=== PATIENT | female | born 1975 | race Caucasian/White ===

== ENCOUNTER 2017-02-14 18:41 | Emergency (ER) | payer OTHER ==
[~2017-02-14] VITALS: Ht 154.9 cm; Wt 54.4 kg
[~2017-02-14 18:41] MED LIST: ALPRAZOLAM0.25 MG PO; ESTRACE2 MG PO; MORPHINE SULFAT15 MG PO; OXYCODONE HCL5 MG PO; PERCOCET 5-3251 EACH PO; PREMARIN0.45 MG PO; ZITHROMAX500 MG PO
[2017-02-14] MEDS ORDERED: CLINDAMYCIN HC300 MG PO (19:55)
== END 2017-02-14 20:04 | disposition home or self-care (01) ==
LOC: ED 18:41
DX: K02.9 Dental caries, unspecified (principal); E11.9 Type 2 diabetes mellitus without complications; Z90.49 Acquired absence of other specified parts of digestive tract; Z90.710 Acquired absence of both cervix and uterus; Z88.0 Allergy status to penicillin; Z88.5 Allergy status to narcotic agent; Z88.6 Allergy status to analgesic agent; Z79.899 Other long term (current) drug therapy
CPT/HCPCS: 99283

== ENCOUNTER 2017-02-17 11:47 | Emergency (ER) | payer OTHER ==
[~2017-02-17 11:47] MED LIST changes: +CLINDAMYCIN HC300 MG PO
[2017-02-17] MEDS ORDERED: PERCOCET 5-3251 EACH PO (13:55)
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
== END 2017-02-17 14:10 | disposition home or self-care (01) ==
LOC: ED 11:47
DX: S06.0X1A Concussion with loss of consciousness of 30 minutes or less, initial encounter (principal); S39.012A Strain of muscle, fascia and tendon of lower back, initial encounter; M54.2 Cervicalgia; R73.03 Prediabetes; Z88.0 Allergy status to penicillin; Z88.5 Allergy status to narcotic agent; Z79.899 Other long term (current) drug therapy; Z90.49 Acquired absence of other specified parts of digestive tract; Z90.710 Acquired absence of both cervix and uterus; V57.5XXA Driver of pick-up truck or van injured in collision with fixed or stationary object in traffic accident, initial encounter
CPT/HCPCS: 70450; 72125; 72131; 80053; 82150; 82550; 85025; 86850; 86900; 86901; 96374; 99284; G0480; J1170

== ENCOUNTER 2017-09-08 15:12 | Emergency (ER) | payer OTHER ==
[~2017-09-08] VITALS: Ht 154.9 cm; Wt 54.4 kg
--- OUTSIDE RECORDS SUMMARY | ~2017-09-08 | XMS | Clinical Summary ---
Demographics + + + | Address | [address] | | | [place] [address] | + + + | Home Phone | | + + + | Preferred Language | Unknown | + + + | Marital Status | | + + + | Caodaism Affiliation | Unknown | + + + | Race | White | + + + | Ethnic Group | Not or | + + + Author + + + | Author | [facility] | + + + | Organization | [facility] | + + + | Address | Unknown | + + + | Phone | Unavailable | + + + Support + + + + + | Name | Relationship | Address | Phone | + + + + + | Mally Darby | ECON | [address] | | | [place] | | [place] | | | | | [address] | | + + + + + Care Team Providers + +------+ + | Care Life Insurance Sales Agent Name | Role | Phone | + +------+ + | Kerwin Jeter DO | PP | | + +------+ + Source Comments [place] is fully live on both EpicCare Ambulatory and EpicCare InPatient.[facility] Allergies + + + + + + | Active Allergy | Reactions | Severity | Noted | Comments | | | | | Date | | + + + + + + | Penicillins | Rash | | 08/30/19 | | | | | | 14 | | + + + + + + Current Medications + + +--------+---------+------+------+-------+ | Prescription | Sig. | Disp. | Refills | Star | End | Statu | | | | | | t | Date | s | | | | | | Date | | | + + +--------+---------+------+------+-------+ | estradiol 1 mg | Take 1 mg by mouth | | | | | Activ | | oral tablet | once daily. | | | | | e | + + +--------+---------+------+------+-------+ | oxyCODONE CR 10 mg | Take 10 mg by mouth | | | | | Activ | | oral tablet | every twelve hours. | | | | | e | | extended release 12 | | | | | | | | hr | | | | | | | + + +--------+---------+------+------+-------+ | morphine 15 mg | Take 15 mg by mouth | | | | | Activ | | oral tablet | every four hours as | | | | | e | | | needed. | | | | | | + + +--------+---------+------+------+-------+ | oxyCODONE, | Take 0.5 tablets by | 10 | 0 | 03/2 | | Activ | | immediate release, | mouth every six | tablet | | 5/20 | | e | | 10 mg oral tablet | hours as needed. | | | 14 | | | + + +--------+---------+------+------+-------+ Active Problems Not on file Social History + +-------+ +--------+------+ | Tobacco Use | Types | Packs/Day | Years | Date | | | | | Used | | + +-------+ +--------+------+ | Never Smoker | | | | | + +-------+ +--------+------+ + +---+---+---+ | Smokeless Tobacco: | | | | | Never Used | | | | + +---+---+---+ + + +---------+ + | Alcohol Use | Drinks/We | oz/Week | Comments | | | ek | | | + + +---------+ + | No | | | | + + +---------+ + + + + | Sex Assigned at | Date Recorded | | | | + + + | Not on file | | + + + Last Filed Vital Signs + + + + | Vital Sign | Reading | Time Taken | + + + + | Blood Pressure | 132/86 | 08/29/2013 10:52 AM PDT | + + + + | Pulse | 78 | 08/29/2013 10:52 AM PDT | + + + + | Temperature | - | - | + + + + | Respiratory Rate | - | - | + + + + | Oxygen Saturation | - | - | + + + + | Inhaled Oxygen | - | - | | Concentration | | | + + + + | Weight | 59 kg (130 lb) | 08/29/2013 10:52 AM PDT | + + + + | Height | 155.6 cm (5' 1.25") | 08/29/2013 10:52 AM PDT | + + + + | Body Mass Index | 24.36 | 08/29/2013 10:52 AM PDT | + + + + Plan of Treatment + + + + + | Health Maintenance | Due Date | Last Done | Comments | + + + + + | INFLUENZA VACCINE | | | | | (FLU SHOT) | 8 | | | + + + + + Results Not on filefrom Last 3 Months
--- OUTSIDE RECORDS SUMMARY | ~2017-09-08 | XMS | Clinical Summary ---
Demographics + + + | Address | [address] | | | [place] [address] | + + + | Home Phone | | + + + | Preferred Language | Unknown | + + + | Marital Status | | + + + | Rastafarian Affiliation | Unknown | + + + [...] + | Mally Darby | ECON | [address] | | | [place] | | [place] | | | | | [address] | | + + + + + Care Team Providers + +------+ + | Care Final Canoe Inspector Name | Role | Phone | + +------+ + | Kerwin Jeter DO | PP | | + +------+ + Source Comments [place] is fully live on both EpicCare Ambulatory and EpicCare InPatient.[facility] Allergies + + + + + [...]
== END 2017-09-08 15:20 | disposition home or self-care (01) ==
LOC: ED 15:12
DX: M79.644 Pain in right finger(s) (principal); M79.89 Other specified soft tissue disorders

== ENCOUNTER 2018-03-05 15:05 | Emergency (ER) | payer OTHER ==
[~2018-03-05] VITALS: Ht 154.9 cm; Wt 51.7 kg
--- OUTSIDE RECORDS SUMMARY | ~2018-03-05 | XMS | Clinical Summary ---
Demographics + + + | Address | [address] | | | [place] [address] | + + + | Home Phone | | + + + | Preferred Language | Unknown | + + + | Marital Status | | + + + | Hinduism Affiliation | Unknown | + + + | Race | Unknown | + + + | Ethnic Group | Unknown | + + + Author + + + | Author | [facility] | | | and [place] | + + + | Organization | [facility] | | | and [place] | + + + | Address | Unknown | + + + | Phone | Unavailable | + + + Support + + + + + | Name | Relationship | Address | Phone | + + + + + | Zak Darby | ECON | [address] | | | | | [place] | | | | | [address] | | + + + + + Care Team Providers + +------+ + | Care Pole Framer Name | Role | Phone | + +------+ + | Kerwin Jeter DO | PP | | + +------+ + Allergies + + + + + + | Active Allergy | Reactions | Severity | Noted | Comments | | | | | Date | | + + + + + + | Acetaminophen-Codein | | | 08/16/19 | | | e | | | 11 | | + + + + + + | Penicillins | Nausea And Vomiting, | Low | 08/16/19 | | | | Rash | | 11 | | + + + + + + Current Medications + + +--------+---------+------+------+-------+ | Prescription | Sig. | Disp. | Refills | Star | End | Statu | | | | | | t | Date | s | | | | | | Date | | | + + +--------+---------+------+------+-------+ | estradiol | Take 2 mg by mouth | | | 02/05 | | Activ | | (ESTRACE) 2 MG | Daily. | | | 08/24 | | e | | tablet | | | | 12 | | | + + +--------+---------+------+------+-------+ | naproxen (NAPROXEN | 1 tablet by mouth | | | 03/1 | | Activ | | DR) 500 MG EC | twice daily with | | | 1/20 | | e | | tablet | food | | | 11 | | | + + +--------+---------+------+------+-------+ | morphine (MS | | | | 05/0 | | Activ | | CONTIN) 15 mg ER | | | | 4/20 | | e | | tablet | | | | 15 | | | + + +--------+---------+------+------+-------+ | PREMARIN 1.25 MG | | | | 04/1 | | Activ | | tablet | | | | 6/20 | | e | | | | | | 15 | | | + + +--------+---------+------+------+-------+ | oxyCODONE | | | | 05/0 | | Activ | | (ROXICODONE) 5 mg | | | | 4/20 | | e | | tablet | | | | 15 | | | + + +--------+---------+------+------+-------+ | cyclobenzaprine | | | | 04/2 | | Activ | | (FLEXERIL) 10 mg | | | | 8/20 | | e | | tablet | | | | 15 | | | + + +--------+---------+------+------+-------+ | diazepam (VALIUM) | Take 1 tablet 45 | 2 | 0 | 07/0 | | Activ | | 5 mg tablet | minutes prior tear | tablet | | 8/20 | | e | | | procedure. If | | | 15 | | | | | necessary, you may | | | | | | | | take a second tablet | | | | | | | | as needed. | | | | | | + + +--------+---------+------+------+-------+ Active Problems + + + | Problem | Noted Date | + + + | ASTHMA, INTERMITTENT | 08/15/2010 | + + + | THORACIC/LUMBOSACRAL NEURITIS/RADICULITIS UNSPEC | 08/15/2010 | + + + | BACK PAIN, THORACIC REGION | 08/15/2010 | + + + | SMOKELESS TOBACCO ABUSE | 08/15/2010 | + + + | PARESTHESIA, HANDS | 08/15/2010 | + + + Family History + + +------+ + | Medical History | Relation | Name | Comments | + + +------+ + | Hypertension | Mother | | | + + +------+ + | Arthritis | Paternal | | | | | Grandmoth | | | | | er | | | + + +------+ + + +------+--------+ + | Relation | Name | Status | Comments | + +------+--------+ + | Mother | | | | + +------+--------+ + | Paternal Grandmother | | | | + +------+--------+ + Social History + +-------+ +--------+------+ | Tobacco Use | Types | Packs/Day | Years | Date | | | | | Used | | + +-------+ +--------+------+ | Never Smoker | | | | | + +-------+ +--------+------+ + +------+---+---+ | Smokeless Tobacco: | Chew | | | | Current User | | | | + +------+---+---+ + + +---------+ + | Alcohol Use | Drinks/We | oz/Week | Comments | | | ek | | | + + +---------+ + | No | 0 | 0.0 | | | | Standard | | | | | drinks or | | | | | | | | | | equivalen | | | | | t | | | + + +---------+ + + + + | Sex Assigned at | Date Recorded | | | | + + + | Not on file | | + + + Last Filed Vital Signs + + + + | Vital Sign | Reading | Time Taken | + + + + | Blood Pressure | 103/55 | 03/20/20151358 PDT | + + + + | Pulse | 43 | 03/20/20151358 PDT | + + + + | Temperature | - | - | + + + + | Respiratory Rate | 16 | 03/20/20151358 PDT | + + + + | Oxygen Saturation | - | - | + + + + | Inhaled Oxygen | - | - | | Concentration | | | + + + + | Weight | 57.6 kg (127 lb) | 03/20/20151358 PDT | + + + + | Height | 160 cm (5' 3") | 03/20/20151358 PDT | + + + + | Body Mass Index | 22.5 | 03/20/20151358 PDT | + + + + Plan of Treatment + + + + + | Health Maintenance | Due Date | Last Done | Comments | + + + + + | Vaccine: | | | | | Dtap/Tdap/Td (1 - | 6 | | | | Tdap) | | | | + + + + + | Vaccine: | | | | | Pneumococcal 19-64 | 6 | | | | (PPSV23 only) Medium | | | | | Risk (1 of 1 - | | | | | PPSV23) | | | | + + + + + | Cervical Cancer | | | | | Screening (Pap) | 7 | | | + + + + + | Vaccine: Influenza | | | | | (#1) | 8 | | | + + + + + Results Not on filefrom Last 3 Months
--- OUTSIDE RECORDS SUMMARY | ~2018-03-05 | XMS | Clinical Summary ---
Demographics + + + | Address | [address] | | | [place] [address] | + + + | Home Phone | | + + + | Preferred Language | Unknown | + + + | Marital Status | | + + + | Uatsdin Affiliation | Unknown | + + + [...] | + + + + + | Cuauhtemoc Darby | ECON | [address] | | | [place] | | [place] | | | | | [address] | | + + + + + Care Team Providers + +------+ + | Care Curb Setter Name | Role | Phone | + +------+ + | Kerwin Jeter DO | PP | | + +------+ + Source Comments [place] is fully live on both EpicCare Ambulatory and EpicCare InPatient.[facility] Allergies + + + + + [...] Results Not on filefrom Last 3 Months Insurance +-------+--------+ +------+ + + | Payer | Benefi | Subscriber | Type | Phone | Address | | | t Plan | ID | | | | | | / | | | | | | | Group | | | | | +-------+--------+ +------+ + + | MODA | MODA | [phone] | PPO | [phone] | [address] [address] | | | [place] | | | [phone] | [place] [address] | | | [place] | | | | | +-------+--------+ +------+ + + + +--------+ +--------+ + + | Guarantor Name | Accoun | Relation to | Date | Phone | Billing Address | | | t Type | Patient | of | | | | | | | | | | + +--------+ +--------+ + + | CUAUHTEMOC DARBY | Person | Self [birth year] | Home: | [address] | | | al/Fam | | 1976 | [phone] | [address] [place] | | | [place] | | | [phone] | + +--------+ +--------+ + +
--- OUTSIDE RECORDS SUMMARY | ~2018-03-05 | XMS | Clinical Summary ---
Demographics + + + | Address | [address] | | | [place] [address] | + + + | Home Phone | | + + + | Preferred Language | Unknown | + + + | Marital Status | | + + + | Yarsani Affiliation | Unknown | + + + [...] + | Cuauhtemoc Darby | ECON | [address] | | | [place] | | [place] | | | | | [address] | | + + + + + Care Team Providers + +------+ + | Care Waiter Waitress Name | Role | Phone | + +------+ + | Kerwin Jeter DO | PP | | + +------+ + Source Comments [place] is fully live on both EpicCare Ambulatory and EpicCare InPatient.[facility] Allergies + + + + + [...] | PPO | [phone] [address] [phone] | | | [place] | | | [phone] | [place] [address] | | | [place] | | | [...] | Self | [birth year] | Home: | [address] | | | al/Fam | | 1976 | [phone] | [address] [place] | | | [place] | | | [phone] | [phone] | + +--------+ +--------+ + +
--- OUTSIDE RECORDS SUMMARY | ~2018-03-05 | XMS | Clinical Summary ---
Demographics + + + | Address | [address] | | | [place] [address] | + + + | Home Phone | | + + + | Preferred Language | Unknown | + + + | Marital Status | | + + + | Zoroastrianism Affiliation | Unknown | + + + | Race | Unknown | + + + | Ethnic Group | Unknown | + + + Author + + + | Author | [facility] | + + + | Organization | [facility] | + + + | Address | Unknown | + + + | Phone | Unavailable | + + + Support + + + + + | Name | Relationship | Address | Phone | + + + + + | Zak Islas | ANTHONY | [place], | | | | | [place] [address] | | + + + + + | Zak Islas | ECON | [address] | | | | | [place], [place] | | | | | [address] | | + + + + + Care Team Providers + +------+ + | Care Escort Blind Name | Role | Phone | + +------+ + | Medicine, Thermal | PP | Unavailable | | Family | | | + +------+ + Allergies + + + + + + | Active Allergy | Reactions | Severity | Noted | Comments | | | | | Date | | + + + + + + | Acetaminophen | Nausea and Vomiting | Low | 08/06/19 | | | | | | 13 | | + + + + + + | Ibuprofen | Nausea and Vomiting | Low | 08/06/19 | | | | | | 13 | | + + + + + + | Penicillins | Nausea and Vomiting, | Medium | 08/06/19 | | | | Rash | | 13 | | + + + + + + Current Medications + + +-------+---------+------+------+-------+ | Prescription | Sig. | Disp. | Refills | Star | End | Statu | | | | | | t | Date | s | | | | | | Date | | | + + +-------+---------+------+------+-------+ | estradiol | Take 2 mg by mouth | | | | | Activ | | (ESTRACE) 2 MG | daily. | | | | | e | | tablet | | | | | | | + + +-------+---------+------+------+-------+ | citalopram | Take 10 mg by mouth | | | | | Activ | | (CELEXA) 10 MG | every morning. | | | | | e | | tablet | | | | | | | + + +-------+---------+------+------+-------+ | ALPRAZolam (XANAX) | Take 0.25 mg by | | | | | Activ | | 0.25 MG tablet | mouth nightly as | | | | | e | | | needed. | | | | | | + + +-------+---------+------+------+-------+ | Oxycodone HCl 10 | Take by mouth. | | | | | Activ | | MG TABS | | | | | | e | + + +-------+---------+------+------+-------+ Active Problems + + + | Problem | Noted Date | + + + | Spine pain | 08/05/2012 | + + + Family History + + +------+ + | Medical History | Relation | Name | Comments | + + +------+ + | Cancer | | | | + + +------+ + | Heart disease | | | | + + +------+ + | Seizures | | | | + + +------+ + | Stroke | | | | + + +------+ + + +------+--------+ + | Relation | Name | Status | Comments | + +------+--------+ + Social History + +-------+ +--------+------+ | Tobacco Use | Types | Packs/Day | Years | Date | | | | | Used | | + +-------+ +--------+------+ | Never Smoker | | | | | + +-------+ +--------+------+ + + +---------+ + | Alcohol Use [...] + + + | Blood Pressure | 139/80 | 08/05/2012 10:42 AM PST | + + + + | Pulse | 108 | 08/05/2012 10:42 AM PST | + + + + | Temperature | - | - | + + + + | Respiratory Rate | - | - | + + + + | Oxygen Saturation | - | - | + + + + | Inhaled Oxygen | - | - | | Concentration | | | + + + + | Weight | 54.4 kg (120 lb) | 08/05/2012 10:42 AM PST | + + + + | Height | 154.9 cm (5' 1") | 08/05/2012 10:42 AM PST | + + + + | Body Mass Index | 22.67 | 08/05/2012 10:42 AM PST | + + + + Plan of [...] Not on filefrom Last 3 Months Insurance + +--------+ +------+-------+---------+ | Payer | Benefi | Subscriber | Type | Phone | Address | | | t Plan | ID | | | | | | / | | | | | | | Group | | | | | + +--------+ +------+-------+---------+ | [employer] | FC-NET | [id number] | | | | | | WORK | | | | | + +--------+ +------+-------+---------+ + +--------+ +--------+ + + | Guarantor Name | Accoun | Relation to | Date | Phone | Billing Address | | | t Type | Patient | of | | | | | | | | | | + +--------+ +--------+ + + | CUAUHTEMOC ISLAS | Person | Self [birth year] | Home: | [address] | | | al/Fam | | 1975 | [phone] | [place] [address] | | | [place] | | | [phone] | | + +--------+ +--------+ + +
--- OUTSIDE RECORDS SUMMARY | ~2018-03-05 | XMS | Clinical Summary ---
Demographics + + + | Address | [address] | | | [place] [address] | + + + | Home Phone | | + + + | Preferred Language | Unknown | + + + | Marital Status | | + + + | Uatsdin Affiliation | Unknown | + + + | Race | Unknown | + + + | Ethnic Group | Unknown | + + + Author + + + | Author | [facility] | | | and [place] | + + + | Organization | [facility] | | | and [place] | + + + | Address | Unknown | + + + | Phone | Unavailable | + + + Support + + + + + | Name | Relationship | Address | Phone | + + + + + | Zak Darby | ECON | [address] | | | | | [place] | | | | | [address] | | + + + + + Care Team Providers + +------+ + | Care Core Rescuer Name | Role | Phone | + [...]
--- OUTSIDE RECORDS SUMMARY | ~2018-03-05 | XMS | Clinical Summary ---
Demographics + + + | Address | [address] | | | [place] [address] | + + + | Home Phone | | + + + | Preferred Language | Unknown | + + + | Marital Status | | + + + | Methodist Affiliation | Unknown | + + + | Race | Unknown | + + + | Ethnic Group | Unknown | + + + Author + + + | Author | [facility] | + + + | Organization | [facility] | + + + | Address | Unknown | + + + | Phone | Unavailable | + + + Support + + + + + | Name | Relationship | Address | Phone | + + + + + | Zak Islas | ANTHONY | [place], | | | | | [place] [address] | | + + + + + | Zak Islas | ECON | [address] | | | | | [place], [place] | | | | | [address] | | + + + + + Care Team Providers + +------+ + | Care Clinical Pharmacy Technician Name | Role | Phone | + +------+ + | Medicine, [place] | PP | Unavailable | | Family [...] +------+-------+---------+ | [employer] | FC-NET | [id number] | | | | | | WORK [...] [birth year] | Home: | [address] | | | al/Fam | | 1975 | [phone] | [place] [address] | | | [place] | | | [phone] | | + +--------+ +--------+ + +
[2018-03-05] MEDS ORDERED: NAPROXEN500 MG PO (16:21)
== END 2018-03-05 16:47 | disposition home or self-care (01) ==
LOC: ED 15:05
DX: S90.811A Abrasion, right foot, initial encounter (principal); W22.8XXA Striking against or struck by other objects, initial encounter; E11.9 Type 2 diabetes mellitus without complications; Z88.0 Allergy status to penicillin; Z88.5 Allergy status to narcotic agent; Z79.899 Other long term (current) drug therapy
CPT/HCPCS: 73630; 96372; 99283; J1885

== ENCOUNTER 2020-07-11 16:07 | Emergency (ER) | payer OTHER ==
[~2020-07-11] VITALS: Ht 154.9 cm; Wt 56.2 kg
[~2020-07-11 16:07] MED LIST changes: +CRUTCH1 EACH MISC; +NAPROXEN500 MG PO; +ZOLOFT100 MG PO
[2020-07-11] MEDS ORDERED: HYDROCODON-ACE1 EA10 PO (18:14)
--- NOTE | 2020-07-11 21:40 | EKG ---
[facility] [address] [facility] [place] [address] Signed Normal sinus rhythm Normal ECG No previous ECGs available Confirmed by GIBRAN BOYD MD ([id number]) on 07/11/2020 9:39:53 PM Electronically Signed By: GIBRAN BOYD MD 07/11/20 2140 PATIENT NAME: CUAUHTEMOC ISLAS Electrocardiogram DATE OF : [birth year] PHYSICIAN: GIBRAN BOYD MD REPORT #: [id number] REPORT IS CONFIDENTIAL AND NOT TO BE RELEASED WITHOUT AUTHORIZATION
== END 2020-07-11 18:35 | disposition home or self-care (01) ==
LOC: ED 16:07
DX: R07.89 Other chest pain (principal); E11.9 Type 2 diabetes mellitus without complications; Z88.0 Allergy status to penicillin; Z88.5 Allergy status to narcotic agent; Z79.899 Other long term (current) drug therapy; Z88.8 Allergy status to other drugs, medicaments and biological substances
CPT/HCPCS: 71046; 80053; 84484; 85025; 93005; 93010; 96372; 99285-25; J1885

== ENCOUNTER 2021-08-21 06:10 | Emergency (ER) | payer OTHER ==
[~2021-08-21] VITALS: Ht 154.9 cm; Wt 57.0 kg
[~2021-08-21 06:10] MED LIST changes: +HYDROCODON-ACE1 EA10 PO
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
== END 2021-08-21 11:22 | disposition short-term general hospital (02) ==
LOC: ED 06:10
DX: S16.1XXA Strain of muscle, fascia and tendon at neck level, initial encounter (principal); S39.012A Strain of muscle, fascia and tendon of lower back, initial encounter; S29.012A Strain of muscle and tendon of back wall of thorax, initial encounter; R73.03 Prediabetes; Z88.0 Allergy status to penicillin; Z88.5 Allergy status to narcotic agent; Z20.822 Contact with and (suspected) exposure to COVID-19; Z88.6 Allergy status to analgesic agent; Z79.899 Other long term (current) drug therapy; V48.5XXA Car driver injured in noncollision transport accident in traffic accident, initial encounter
CPT/HCPCS: 36415; 70450; 71260; 72125; 74177; 80053; 81001; 82553; 84702; 84703; 85025; 85610; 86850; 86900; 86901; 99285-25; C9803; G0480; J1170; J2270; J7121; U0003

== ENCOUNTER 2025-05-16 17:05 | Emergency (ER) | payer OTHER ==
[~2025-05-16] VITALS: Ht 154.9 cm; Wt 62.0 kg
[2025-05-16 17:48] VITALS: BP 163/78
== END 2025-05-16 17:48 | disposition home or self-care (01) ==
LOC: ED 17:05
DX: S29.012A Strain of muscle and tendon of back wall of thorax, initial encounter (principal); V49.9XXA Car occupant (driver) (passenger) injured in unspecified traffic accident, initial encounter; E11.9 Type 2 diabetes mellitus without complications; Z88.0 Allergy status to penicillin; Z88.5 Allergy status to narcotic agent; Z79.899 Other long term (current) drug therapy
CPT/HCPCS: 99284